=== PATIENT | female | born 1960 | race African-American/Black ===

== ENCOUNTER 2025-01-10 06:41 | Day surgery (SDC) | payer OTHER ==
[2025-01-10] MEDS ORDERED: Sodium Chloride 0.9(Preservative Free) 10 ML IJ ONE (06:42)
[2025-01-10] MEDS ORDERED: propofoL IV ONE (08:36)
[2025-01-10] MEDS ORDERED: DILAUDID 0.5 MG/0.5 ML SYRINGE ONE ×2 (09:09→09:23)
--- NOTE | 2025-01-10 10:26 | XRAY ---
Indication: Left L4-S1 transforaminal MADELYN. Intraoperative fluoroscopy provided for 46 seconds. 7 digital spot images submitted for interpretation demonstrates posterior needle tips projecting over expected left L4 and L5 nerve roots. Small amount of contrast injected for needle tip placement. Correlate with intraoperative findings/report. Incidental bilateral L4-L5 posterior fusion hardware
[2025-01-10] MEDS ORDERED: Lactated Ringers 1,000 ML IV ONE (11:25)
--- NOTE | 2025-01-10 12:00 | XRAY ---
46 seconds of fluoroscopy was used in surgery for a left L4-S1 transforaminal MADELYN.
== END 2025-01-10 09:45 | disposition home or self-care (01) ==
LOC: SDC-PAIN 06:41
PROVIDERS: ATTEND Psychiatry & Neurology Pain Medicine
DX: M54.16 Radiculopathy, lumbar region (principal)